=== PATIENT | male | born 1965 | race Caucasian/White ===

== ENCOUNTER → 2017-05-19 | Outpatient (CLI) | payer SELFPAY ==
[~2017-05-19] MED LIST: ASP81TEC PO; ASPI325T4; CLOP75TA; CLOP75TA PO; ISM30TCR PO; ISOS30TA3 PO; LISI5TAB PO; METH500T35 PO; METO-354 PO; METO10TA3 PO; METO50TA7 PO; NAPR-243 PO; OMEG-12 PO; OMEG1CAP51 PO; OMEP-10 PO; OMG1KC PO; ONDAN4ODT PO; OXYC-309 PO; PNT40TEC PO; RABE20TA PO; RIVA15TA PO; RIVA20TA2 PO; SCR1T1 PO; SMV20T PO; TRM50T PO; WRF10T PO; WRF5T PO
== END ==
LOC: PREOP 05:51
PROVIDERS: ATTEND Surgery
DX: Z01.818 Encounter for other preprocedural examination (principal); R10.13 Epigastric pain

== ENCOUNTER 2017-06-19 14:20 | Outpatient (CLI) | payer OTHER ==
[~2017-06-19] VITALS: Ht 180.3 cm; Wt 96.2 kg
[2017-06-19] MEDS ORDERED: OMEG-77 PO (14:31)
[2017-06-19] MEDS ORDERED: RIVA20TA PO (14:31)
[2017-06-19] MEDS ORDERED: SUCR1TAB PO (14:31)
[2017-06-19] MEDS ORDERED: LISI-552 PO (14:31)
[2017-06-19] MEDS ORDERED: OMEP20CA12 PO (14:31)
[2017-06-20] MEDS ORDERED: PANT40TA2 PO (13:30)
== END 2017-06-19 14:36 ==
LOC: PREOP 14:20
PROVIDERS: ATTEND Surgery
DX: Z01.818 Encounter for other preprocedural examination (principal); R10.13 Epigastric pain

== ENCOUNTER → 2017-08-01 | Outpatient (CLI) | payer SELFPAY ==
[~2017-08-01] MED LIST changes: +LISI-552 PO; +OMEG-77 PO; +OMEP20CA12 PO; +PANT40TA2 PO; +RIVA20TA PO; +SUCR1TAB PO
--- NOTE | 2017-08-01 10:38 | Diagnostic Imaging Report ---
PROCEDURE: CT abdomen and pelvis without contrast. TECHNIQUE: Multiple contiguous axial images were obtained through the abdomen and pelvis without the use of intravenous contrast. INDICATION: Epigastric pain. Weight loss. FINDINGS: The lung bases appear clear. The liver, the spleen, the adrenal glands, and the pancreas appear unremarkable for unenhanced exam. Cholecystectomy clips are seen. There is an IVC filter noted with the tines of the filter appearing to project into the retroperitoneal fat around the IVC. The kidneys demonstrate no hydronephrosis or stones. The abdominal aorta is normal in caliber. No paraaortic significantly enlarged lymph nodes seen. The appendix is normal. There is no bowel obstruction. No significant free fluid or fluid collection in the abdomen or pelvis is seen. The urinary bladder appears unremarkable. The prostate is 4.5 cm in transverse dimension. There is a tiny fat-containing umbilical hernia seen. The osseous structures demonstrates sclerotic lesion in the left femoral neck measuring 1.6 cm in size probably a bony island. Mild degenerative changes in the SI joints are seen. IMPRESSION: Tiny fat-containing umbilical hernia is seen. There is an IVC filter with its zachary projecting into the retroperitoneal fat around the IVC. Dictated by: Dictated on workstation # [id number]
== END ==
LOC: RAD 08:38
PROVIDERS: ATTEND Surgery
DX: R10.13 Epigastric pain (principal); R63.4 Abnormal weight loss
CPT/HCPCS: 74176

== ENCOUNTER → 2018-02-19 | Outpatient (CLI) | payer SELFPAY ==
[2018-02-19 15:38] LABS: BASOPHILS % (AUTO) 0 % (0-10); EOSINOPHILS # (AUTO) 0.2 10^3/uL (0.0-0.3); EOSINOPHILS % (AUTO) 3 % (0-10); HEMATOCRIT 40 % (40-54); HEMOGLOBIN 14.1 G/DL (13.3-17.7); LYMPHOCYTES % (AUTO) 39 % (12-44); MEAN CORPUSCULAR HEMOGLOBIN 33 PG (25-34); MEAN CORPUSCULAR HGB CONC 35 G/DL (32-36); MEAN CORPUSCULAR VOLUME 94 FL (80-99); MONOCYTES # (AUTO) 0.4 X 10^3 (0.0-1.0); MONOCYTES % (AUTO) 7 % (0-12); NEUTROPHILS # (AUTO) 2.6 X 10^3 (1.8-7.8); NEUTROPHILS % (AUTO) 51 % (42-75); PLATELET COUNT 189 10^3/uL (130-400); RED BLOOD COUNT 4.28 10^6/uL (4.35-5.85); RED CELL DISTRIBUTION WIDTH 12.9 % (10.0-14.5); WHITE BLOOD COUNT 5.1 10^3/uL (4.3-11.0)
[2018-02-19 15:54] LABS: ALANINE AMINOTRANSFERASE 16 U/L (0-55); ALBUMIN 3.8 GM/DL (3.2-4.5); ALKALINE PHOSPHATASE 86 U/L (40-136); BILIRUBIN,TOTAL 1.8 MG/DL (0.1-1.0); BUN/CREATININE RATIO 15; CALCIUM 9.1 MG/DL (8.5-10.1); CARBON DIOXIDE 27 MMOL/L (21-32); CHLORIDE 104 MMOL/L (98-107); CREATININE SERUM 0.72 MG/DL (0.60-1.30); GFR ESTIMATED > 60; GLUCOSE 98 MG/DL (70-105); POTASSIUM 4.4 MMOL/L (3.6-5.0); SODIUM 137 MMOL/L (135-145); TOTAL PROTEIN 6.4 GM/DL (6.4-8.2)
[2018-02-19 16:56] LABS: FREE T4 (FREE THYROXINE) 1.56 NG/DL (0.70-1.48)
== END ==
LOC: LAB 15:07
DX: R63.4 Abnormal weight loss (principal)
CPT/HCPCS: 36415; 80053; 84439; 84443; 85025

== ENCOUNTER → 2019-08-19 | Outpatient (CLI) | payer SELFPAY ==
[~2019-08-19] MED LIST changes: -OMEP20CA12 PO; +OMEP20CA13 PO; -RIVA20TA PO
--- NOTE | 2019-08-19 12:05 | Diagnostic Imaging Report ---
PROCEDURE: MRI lumbar spine. TECHNIQUE: Multiplanar, multisequence MRI of the lumbar spine was performed without contrast. INDICATION: Low back pain and leg numbness. COMPARISON: No prior studies are available for comparison. FINDINGS: Curvature and alignment of the lumbar spine is normal. Vertebral body heights are maintained. The marrow signal intensity is unremarkable. No geographic marrow lesion or acute compression fracture is identified. There is generalized degenerative disc disease with variable disc space narrowing and desiccation. The conus is unremarkable at the T12-L1 level. T12-L1: Central canal is patent. Neural foramina appear patent. L1-L2: There is broad-based disc/osteophyte complex indenting the ventral thecal sac. In addition, there appears to be extruded disc extending into the anterior epidural space just caudal to the disc space and posterior to the L2 vertebral body. Disc material is in the right paramidline location measuring 16 mm cephalocaudal x 11 mm transverse x 6 mm AP. This indents the ventral thecal sac significantly narrowing the right lateral recess and also creating some central canal narrowing. No significant neural foraminal narrowing is seen. L2-L3: There is some ligamentous thickening and facet changes as well as broad-based disc/osteophyte complex. Central canal remains patent. No significant neural foraminal narrowing is seen. L3-L4: There is some ligamentous thickening and broad-based disc/osteophyte complex. Central canal is patent. The lateral recesses are narrowed bilaterally. There is also ulhi-ku-[id number] bilateral neural foraminal stenosis. L4-L5: Broad-based disc/osteophyte complex flattens the ventral thecal sac. Central canal is patent, but there is significant narrowing of bilateral lateral recesses. There is also significant bilateral neural foraminal stenosis. L5-S1: The central canal is widely patent. No significant neural foraminal narrowing is seen. Paraspinous tissues are unremarkable. IMPRESSION: Multilevel lumbar spondylosis with multilevel lateral recess and neural foraminal stenosis, described level by level above. There is also extruded disc noted posterior to the L2 vertebral body, narrowing the central canal and right neural foramen, described above. Dictated by: Dictated on workstation # [id number]
== END ==
LOC: RAD 10:20
PROVIDERS: ATTEND Internal Medicine
DX: M48.061 Spinal stenosis, lumbar region without neurogenic claudication (principal); M47.26 Other spondylosis with radiculopathy, lumbar region; M51.16 Intervertebral disc disorders with radiculopathy, lumbar region
CPT/HCPCS: 72148

== ENCOUNTER 2021-12-31 09:14 | Emergency (ER) | payer BC ==
[~2021-12-31] VITALS: Ht 180.3 cm; Wt 93.0 kg
[~2021-12-31 09:14] MED LIST changes: -LISI-552 PO; +LISI20TA26 PO; -OMEP20CA13 PO; +OMEP20CA18 PO
--- NOTE | 2021-12-31 10:11 | ED Hip Pain/Injury ---
General Chief Complaint: Hip/Pelvic Problems Stated Complaint: R HIP PAIN Nursing Triage Note: PT AMB TO FT 2 W PERSONAL CRUTCHES W C/O R HIP PAIN X2 WKS SX PICKING UP A TRAILER AND FEELING A SHARP PAIN. PT REPORTS HE WENT TO PCP AND WAS TOLD HE HAS SCIATICA, C/O WORSENING PAIN. PT A&OX4. Source: patient Exam Limitations: no limitations History of Present Illness Date Seen by Provider: December 31, 2021 Time Seen by Provider: 09:53 Initial Comments Patient to the ER by private conveyance with chief complaint of couple weeks of low back pain on the right side radiating into his hip anteriorly and posteriorly with paresthesias all the way down to his right great toe. No saddle anesthesia. He has had no incontinence of stool or bladder but he does have urgency and sometimes he cannot make it to the bathroom fast enough. No diarrhea. He was given some Percocets and a steroid shot by Dr. Saucedo a few days ago but has ran out of that. He was not put on steroid pill. Patient does not feel like he is getting any better. He says he did get some relief from the Percocet. In the past he was recommended to go follow-up with a surgeon by Dr. Mary however his mom was on hospice and he did not have insurance so he did not follow-up at that time. He says now he would do that. 2 weeks ago when this started he says he lifted a trailer out and immediately felt the pain. He has not had any falls due to weakness. He is on Xarelto long-term and does not take NSAIDs routinely. He has a history of stomach ulcers. Allergies and Home Medications Allergies Coded Allergies: No Known Drug Allergies (Unverified , 06/19/17) Patient Home Medication List Home Medication List Reviewed: Yes Lisinopril (Lisinopril) 20 Mg Tablet, 20 MG PO DAILY, (Reported) Entered as Reported by: JUN ROUSE on 06/19/17 1431 [place]-3 Fatty Acids/Fish Oil (Fish Oil 1,000 mg Softgel) 1 Each Capsule, 1 EACH PO DAILY, (Reported) Entered as Reported by: JUN ROUSE on 06/19/17 1431 Pantoprazole Sodium (Protonix) 40 Mg Tablet., 40 MG PO DAILY Prescribed by: EWELINA SHEFFIELD on 06/20/17 1330 Rivaroxaban (Xarelto Tablet) 20 Mg Tablet, 20 MG PO DAILY, (Reported) Entered as Reported by: JUN ROUSE on 06/19/17 1431 Sucralfate (Sucralfate) 1 Gm Tablet, 1 GM PO ACHS, (Reported) Entered as Reported by: JUN ROUSE on 06/19/17 1431 Review of Systems Constitutional: No chills, No fever, No malaise EENTM: No ear discharge, No ear pain Respiratory: No cough, No short of breath Cardiovascular: No chest pain, No edema Gastrointestinal: No abdominal pain, No nausea, No vomiting Genitourinary: see HPI; No discharge, No dysuria Musculoskeletal: back pain; No joint pain All Other Systems Reviewed Negative Unless Noted: Yes Past Eninzci-Xilkwn-Dcibjn Hx Patient Social History Tobacco Use?: No Use of E-Cig and/or Vaping dev: No Substance use?: No Alcohol Use?: No Immunizations Up To Date Tetanus Booster (TDap): More than 5yrs PED Vaccines UTD: No Influenza Vaccine Up-to-Date: No; Not Current First/Initial COVID19 Vaccinat: 2020 Second COVID19 Vaccination Manoj: 2020 Third COVID19 Vaccination Date: N/A COVID19 Vaccine [employer]: MAUREEN Seasonal Allergies Seasonal Allergies: Yes Past Medical History Coronary Stent, Gallbladder Pulmonary Embolism Coronary Artery Disease, Deep Vein Thrombosis, Heart Attack, High Cholesterol Reproductive Disorders: No Sexually Transmitted Disease: No HIV/AIDS: No Gastroesophageal Reflux, Hiatal Hernia Chronic Back Pain, Gout Loss of Vision: Bilateral Hearing Impairment: Denies Adverse Reaction/Blood Tranf: No Family Medical History Cancer Cancer of colon 03 MOTHER, Onset:30's - 40 (breast cancer) Congestive heart failure 03 MOTHER, Onset:60 years & older (triple bypass) Family history: Breast disease 03 MOTHER, Onset:30's - 40 Family history: Cardiovascular disease 03 MOTHER, Onset:60 years & older Family history: Diabetes mellitus 03 MOTHER, Onset:50's - 60 Family history: Hypertension 03 MOTHER, Onset:30's - 40 Family history: Thyroid disorder 09 SISTER, Onset:30's - 40 Heart disease 03 MOTHER, Onset:60 years & older Stroke 09 BROTHER, Onset:30's - 40 (clot in the brain, at 35) No Family History of: Abdominal aortic aneurysm [place]'s disease Alcoholism Aphasia Cataract Chest pain Congenital heart disease Cystic fibrosis Dementia Family history: Alzheimer's disease Family history: Arthritis Family history: Asthma Family history: Coronary thrombosis Family history: Gastrointestinal disease Family history: Glaucoma Family history: Osteoporosis Hearing loss History of - respiratory disease No Pertinent Family Hx Physical Exam Vital Signs Vital Signs - First Documented 12/31/21 09:24 Temp 36.3 Pulse 90 Resp 20 B/P (MAP) 120/84 (96) Pulse Ox 97 O2 Delivery Room Air Capillary Refill : Less Than 3 Seconds Height, Weight, BMI Height: 5'11.00" Weight: 212lbs. 0.0oz. 96.642801ka; 28.00 BMI Method:Stated General Appearance: No Apparent Distress, WD/WN HEENT: PERRL/EOMI, Pharynx Normal, Moist Mucous Membranes Neck: Full Range of Motion, Normal Inspection Cardiovascular: Regular Rate, Rhythm, No Edema, Normal Peripheral Pulses Respiratory: Lungs Clear, Normal Breath Sounds, No Accessory Muscle Use, No Respiratory Distress Peripheral Pulses: 2+ Radial Pulses (R), 2+ Radial Pulses (L) Gastrointestinal: Normal Bowel Sounds, No Organomegaly, Non Tender, Soft Back: Normal Inspection, Vertebral Tenderness (Midline vertebral tenderness as well as muscle spasms paravertebral specially on the right side of the lumbar spine. Recreates his symptoms to direct palpation over L5-S1 facet joint on the right.) Extremity: Normal Capillary Refill, Normal Inspection, No Pedal Edema, Other (Right hip and pelvis are tender throughout. No deformity crepitus or swelling noted.) Neurologic/Psychiatric: Alert, Oriented x3, No Motor/Sensory Deficits, Normal Mood/Affect Skin: Normal Color, Warm/Dry Procedures/Interventions Progress Point of maximal tenderness injection along the L4/L5 facet joint right side. Cleaned the skin with alcohol and use a 25-gauge 1-1/2 inch needle and Z track method to access the area of greatest tenderness along the L4-L5 facet joints. Admixture of half cc of 1% lidocaine without epinephrine and half cc of half percent bupivacaine with epinephrine mixed with 1 cc of 40 mg/mL Depo-Medrol. No blood was aspirated and injected easily in the area. Patient tolerated procedure well. Sterile, dry bandage was placed over the injection site. Progress/Results/Core Measures Results/Orders Lab Results Laboratory Tests Test 12/31/21 10:26 Range/Units Urine Color YELLOW Urine Clarity CLEAR Urine pH 8.0 5-9 Urine Specific [place] 1.010 L 1.016-1.022 Urine Protein NEGATIVE NEGATIVE Urine Glucose (UA) NEGATIVE NEGATIVE Urine Ketones NEGATIVE NEGATIVE Urine Nitrite NEGATIVE NEGATIVE Urine Bilirubin NEGATIVE NEGATIVE Urine Urobilinogen 1.0 < = 1.0 MG/DL Urine Leukocyte Esterase NEGATIVE NEGATIVE Urine RBC (Auto) NEGATIVE NEGATIVE Urine RBC NONE /HPF Urine WBC RARE /HPF Urine Crystals NONE /LPF Urine Bacteria NEGATIVE /HPF Urine Casts NONE /LPF Urine Mucus NEGATIVE /LPF Urine Culture Indicated NO My Orders Orders - VICKIE VILLALOBOS Hip, Right, 2 Views (12/31/21 10:04) Ct Lumbar Spine Wo (12/31/21 10:04) Oxycodone/Apap 5/325mg Tablet (Percocet (12/31/21 10:15) Ua Culture If Indicated (12/31/21 10:11) Bupivacaine 0.25% W/Epi Inj (Marcaine 0. (12/31/21 11:30) Methylprednisolone Acetate Inj (Depo-Med (12/31/21 11:30) Bupivacaine 0.5% Injection (Sensorcaine (12/31/21 11:34) Medications Given in ED Current Medications Medications Dose Ordered Sig/Burton Route Start Time Stop Time Status Last Admin Dose Admin Oxycodone/ Acetaminophen 1 tab ONCE ONCE PO 12/31/21 10:15 12/31/21 10:16 DC 12/31/21 10:36 1 TAB Vital Signs/I&O 12/31/21 09:24 Temp 36.3 Pulse 90 Resp 20 B/P (MAP) 120/84 (96) Pulse Ox 97 O2 Delivery Room Air Blood Pressure Mean: 96 Progress Progress Note #1: Time: 10:10 Progress Note Plain films of the right hip and had a CT of the lumbar spine. We called but MRI is completely booked today. Plan to give him a Percocet for his immediate relief and check a urinalysis. We did recommend laxatives for his bowel symptoms. Progress Note #2: Time: 11:26 Progress Note Pain is improved with Percocet. The patient has significant improvement in range of motion and able to sit up. He has significant findings on CT but MRI states they are overbooked today and cannot get him in. We will give him a re ferral to orthopedic surgery and they can get him set up for appropriate imaging outpatient. He is not having any red flag symptoms at this time. We will give him an injection of Depo-Medrol as well as some lidocaine/Marcaine. Diagnostic Imaging Diagonstic Imaging: Xray Plain Films/CT/US/NM/MRI: hip (r) [facility] [place] NAME: SANDRA SHAH [facility] REC#: [id number] PT STATUS: REG ER : 1965 PHYSICIAN: VICKIE VILLALOBOS MD ADMIT DATE: 12/31/21/ER Draft Date of Exam:12/31/21 HIP, RIGHT, 2 VIEWS INDICATION: Right hip pain after injury. FINDINGS: AP and frog-leg views of right hip reveal mild narrowing of the right hip joint. There is no evidence of an acute fracture or subluxation. There is mild marginal spurring along the acetabular roof. There is mild atherosclerotic calcification. IMPRESSION: Mild degenerative findings in the right hip without acute abnormality detected. Dictated on workstation # [id number] Dict: 12/31/21 1102 Trans: 12/31/21 1107 [id number] Interpreted by: DEBRA LYNCH MD Electronically signed by: Reviewed: Reviewed by Me Diagonstic Imaging: CT Plain Films/CT/US/NM/MRI: other (Lumbar spine without contrast) Comments [facility] [place] [place] NAME: SANDRA SHAH [facility] REC#: [id number] PT STATUS: REG ER : 1965 PHYSICIAN: VICKIE VILLALOBOS MD ADMIT DATE: 12/31/21/ER Draft Date of Exam:12/31/21 CT LUMBAR SPINE WO PROCEDURE: CT lumbar spine without contrast. TECHNIQUE: Multiple contiguous axial images were obtained through the lumbar spine without the use of intravenous contrast. Sagittal and coronal reformations were then performed. Auto Exposure Controls were utilized during the CT exam to meet ALARA standards for radiation dose reduction. INDICATION: Low back pain radiating into right hip. COMPARISON: MRI lumbar spine 08/19/2019. FINDINGS: There are five lumbar-type vertebral bodies. Grade 1 retrolisthesis of L5 on S1. Vertebral body heights are preserved. No fractures. Mild scattered degenerative endplate changes. Soft tissue windows demonstrate probable moderate spinal canal stenosis at L4-L5 due to ligamentous hypertrophy and broad-based disc bulging. There is also fpgvrban-ub-xdrrdm bilateral neural foraminal narrowing at this level. IVC filter. Cholecystectomy. The visualized pelvis is intact. IMPRESSION: 1. No acute CT findings in the lumbar spine. 2. Spondylotic changes likely result in at least moderate spinal canal stenosis at L4-L5. There is also fsbprlsn-pc-jhwfmm bilateral neural foraminal narrowing at this level. This could be further investigated with MRI. Dictated on workstation # [id number] Dict: 12/31/21 1057 Trans: 12/31/21 1104 [id number] Interpreted by: ASHLEY CAMARILLO MD Electronically signed by: Reviewed: Reviewed by Me Departure Impression Primary Impression: Lumbago-sciatica due to displacement of lumbar intervertebral disc Additional Impression: Foraminal stenosis of lumbar region Disposition: 01 HOME, SELF-CARE Condition: Stable Departure-Patient Inst. Decision time for Depature: 11:45 Referrals: JOVANY MARY MD (PCP/Family) Primary Care Physician GARY PRO MD Patient Instructions: Sciatica Exercises, Sciatica (DC) Add. Discharge Instructions: Make a follow-up appointment with Dr. Pro, orthopedic surgery to help manage your back pain. Return to the ER promptly if you are unable to urinate, cannot stand due to weakness or have other worrisome symptoms. Tylenol 650 mg every 8 hours as necessary for pain. Percocet 1 tablet every 6 hours as needed for severe breakthrough pain. Percocet will cause constipation and you should use MiraLAX at least once or twice a day to stay regular. Topical creams such as icy hot or Biofreeze can be helpful. Salonpas or lidocaine patches can be helpful. Obtain a back brace and wear it on the days that helps. The steroid should kick in in 12 to 24 hours and relieve some of the inflammation and pain and lasts about 5 to 7 days total. All discharge instructions reviewed with patient and/or family. Voiced understanding. Scripts Oxycodone HCl/Acetaminophen (Percocet 5-325 mg Tablet) 1 Each Tablet 1 TAB PO Q6H for PAIN-MODERATE MDD 6 TABS for 5 Days, #22 TAB 0 Refills Prov: VICKIE VILLALOBOS 12/31/21 Work/School Note: Work Release Form Date Seen in the Emergency Department: December 31, 2021 Return to Work: January 10, 2022 Restrictions: Need Release from Doctor Copy Copies To 1: GARY PRO MD, TITUS J December 31, 2021 10:11
[2021-12-31] MEDS ORDERED: oxyCODONE/APAP 5/325MG (PERCOCET 5) TABLET PO ONE (10:15)
[2021-12-31 10:38] LABS: BILIRUBIN,URINE NEGATIVE (NEGATIVE); CLARITY,URINE CLEAR; COLOR,URINE YELLOW; GLUCOSE, URINE (UA) NEGATIVE (NEGATIVE); KETONES,URINE NEGATIVE (NEGATIVE); LEUKOCYTE ESTERASE ,URINE NEGATIVE (NEGATIVE); NITRITE,URINE NEGATIVE (NEGATIVE); PROTEIN,URINE NEGATIVE (NEGATIVE)
[2021-12-31 10:47] LABS: BACTERIA,URINE NEGATIVE /HPF; WBC,URINE RARE /HPF
--- NOTE | 2021-12-31 11:04 | Diagnostic Imaging Report ---
PROCEDURE: CT lumbar spine without contrast. TECHNIQUE: Multiple contiguous axial images were obtained through the lumbar spine without the use of intravenous contrast. Sagittal and coronal reformations were then performed. Auto Exposure Controls were utilized during the CT exam to meet ALARA standards for radiation dose reduction. INDICATION: Low back pain radiating into right hip. COMPARISON: MRI lumbar spine 08/19/2019. FINDINGS: There are five lumbar-type vertebral bodies. Grade 1 retrolisthesis of L5 on S1. Vertebral body heights are preserved. No fractures. Mild scattered degenerative endplate changes. Soft tissue windows demonstrate probable moderate spinal canal stenosis at L4-L5 due to ligamentous hypertrophy and broad-based disc bulging. There is also hskqbrzn-ow-fqlhfc bilateral neural foraminal narrowing at this level. IVC filter. Cholecystectomy. The visualized pelvis is intact. IMPRESSION: 1. No acute CT findings in the lumbar spine. 2. Spondylotic changes likely result in at least moderate spinal canal stenosis at L4-L5. There is also cswtadgm-jx-vypnjy bilateral neural foraminal narrowing at this level. This could be further investigated with MRI. Dictated by: Dictated on workstation # [id number]
--- NOTE | 2021-12-31 11:08 | Diagnostic Imaging Report ---
INDICATION: Right hip pain after injury. FINDINGS: AP and frog-leg views of right hip reveal mild narrowing of the right hip joint. There is no evidence of an acute fracture or subluxation. There is mild marginal spurring along the acetabular roof. There is mild atherosclerotic calcification. IMPRESSION: Mild degenerative findings in the right hip without acute abnormality detected. Dictated by: Dictated on workstation # [id number]
[2021-12-31] MEDS ORDERED: methylPREDNISolone 40 MG/ML (DEPO MEDROL) VIAL IM ONE (11:30)
[2021-12-31] MEDS ORDERED: BUP/EPI 0.25% 1:200,000 (MARCAINE) 30 ML VIAL INJ ONE (11:30)
[2021-12-31] MEDS ORDERED: BUPIVACAINE 0.5% 30 ML (SENSORCAINE) VIAL ONE (11:34)
[2021-12-31] MEDS ORDERED: OXYC1TAB87 PO (11:52)
[2021-12-31 11:58] VITALS: BP 118/78
== END 2021-12-31 11:58 | disposition home or self-care (01) ==
LOC: EDUNIT# 09:14 → ER 09:15
DX: M51.16 Intervertebral disc disorders with radiculopathy, lumbar region (principal); M48.061 Spinal stenosis, lumbar region without neurogenic claudication
CPT/HCPCS: 72131; 73502; 81000